=== PATIENT | male | born 1960 | race Caucasian/White ===

== ENCOUNTER → 2019-12-13 13:00 | Outpatient (CLI) | payer BC, SELFPAY ==
--- NOTE | ~2019-12-13 | XR_ITS ---
EXAMINATION: XR knee RT 3V DATE: 12/13/2019 13:28 INDICATION: Right knee pain TECHNIQUE: Weight bearing anteroposterior, sunrise, and flexed lateral views of the right knee were o btained COMPARISON: 12/05/2015 FINDINGS: No fracture. Mild genu varus with progression of now severe joint space loss in the medial compartmen t. Moderate-sized marginal osteophytes in the medial compartment with small marginal osteophytes in t he lateral and patellofemoral compartments. Likely right knee joint effusion. IMPRESSION: 1. Interval progression of tricompartmental osteoarthritis at the right knee, now severe in the media l compartment. No acute osseous abnormality. 2. Likely reactive right knee joint effusion. Reviewed, dictated and finalized at location A. IMPRESSION: 1. Interval progression of tricompartmental osteoarthritis at the right knee, n ow severe in the medial compartment. No acute osseous abnormality. 2. Likely reactive right knee joint effusion.
== END ==
PROVIDERS: PCP Family Medicine; Visit Provider Family Medicine
DX: M25.561 Pain in right knee (principal); M17.11 Unilateral primary osteoarthritis, right knee; M25.461 Effusion, right knee
CPT/HCPCS: 73562

== ENCOUNTER 2020-02-10 13:57 | Outpatient (CLI) | payer BC, SELFPAY ==
[2020-02-10 14:20] LABS: Basophils Absolute Auto 0.1 K/mm3 (0.0-0.1); Basophils Percent Auto 1.1 % (0.2-1.2); Eosinophils Absolute Auto 0.6 K/mm3 (0-0.3); Eosinophils Percent Auto 5.7 % (0-4.4); Hematocrit 39.5 % (42.0-52.0); Hemoglobin 12.6 g/dL (14.0-18.0); Immature Granulocyte Absolute 0.01 K/mm3 (0.00-0.031); Immature Granulocyte Percent A 0.1 % (0-0.5); Lymphocytes Absolute Auto 2.49 K/mm3 (0.9-3.2); Lymphocytes Percent Auto 25.9 % (18.3-44.2); Mean Corpuscular HGB Conc 31.9 g/dl (32-36); Mean Corpuscular Volume 81.6 fl (80-100); Mean Platelet Volume 9.7 fl (7.4-10.4); Monocytes Absolute Auto 0.8 K/mm3 (0.1-0.6); Monocytes Percent Auto 8.5 % (2.6-8.5); Neutrophils Absolute Auto 5.6 K/mm3 (1.3-6.7); Neutrophils Percent Auto 58.7 % (45.5-73.1); Platelet Count Result 416 k/mm3 (150-375); Red Blood Count 4.84 M/mm3 (4.6-6.20); Red Cell Distribution Width 16.2 % (11.5-14.5); White Blood Count 9.6 K/mm3 (4.5-10.0)
[2020-02-10 15:19] LABS: Erythrocyte Sedimentation Rate 18 mm/hr (0-20)
[2020-02-10 16:46] LABS: Alanine Aminotransferase 17 U/L (4-50); Albumin Level 4.3 g/dL (3.5-5.1); Alkaline Phosphatase 82 U/L (38-126); Aspartate Amino Transferase 19 U/L (17-59); Bilirubin,Total 0.2 mg/dL (0.2-1.3); Blood Urea Nitrogen 21 mg/dL (9-20); CRP < 0.5 mg/dL (<1.0); Calcium 9.4 mg/dL (8.4-10.2); Carbon Dioxide 24 mmol/L (22-30); Chloride 108 mmol/L (98-107); Estimated Glomerular Filt Rate > 60; Glucose 123 mg/dL (75-110); Potassium 4.5 mmol/L (3.4-5.0); Sodium 141 mmol/L (137-145)
[2020-02-17 15:12] LABS: CALR Exon 9 Mutation Not Detected (Not Detected); CSF3R Exon 14/17 Mutation Not Detected (Not Detected); JAK2 Exon 12 Mutation Not Detected (Not Detected); JAK2 V617F Mutation Not Detected (Not Detected); MPL Exon 10 Mutation Not Detected (Not Detected)
== END 2020-02-10 13:58 | disposition home or self-care (01) ==
LOC: ANHLAB 14:01
PROVIDERS: PCP Family Medicine; Visit Provider Internal Medicine Hematology & Oncology
DX: R79.89 Other specified abnormal findings of blood chemistry (principal); D47.3 Essential (hemorrhagic) thrombocythemia
CPT/HCPCS: 36415; 80053; 81219; 81270; 81402; 81403; 81479; 85025; 85652; 86140

== ENCOUNTER 2020-03-07 10:29 | Outpatient (CLI) | payer BC, SELFPAY ==
--- NOTE | ~2020-03-07 | US_ITS ---
EXAMINATION: US venous doppler [facility] EXAM DATE: 03/07/2020 11:23 INDICATION: History of blood clots. TECHNIQUE: Multiple grayscale, color flow and Doppler images of the left lower extremity deep venous system were obtained and reviewed. Comparison is made to prior examination from 01/01/2017. FINDINGS: The left common femoral, femoral and profunda veins demonstrate normal color flow, respirat ory variation, augmentation and compressibility. Compressibility, color flow confirmed within the le ft popliteal, posterior tibial, peroneal, and greater saphenous veins. IMPRESSION: No left lower extremity deep venous thrombosis. Reviewed, dictated and finalized at location B.
== END 2020-03-07 10:30 | disposition home or self-care (01) ==
PROVIDERS: PCP Family Medicine; Visit Provider Nurse Practitioner Family
DX: M79.89 Other specified soft tissue disorders (principal); Z86.718 Personal history of other venous thrombosis and embolism
CPT/HCPCS: 93971

== ENCOUNTER 2021-02-09 12:15 | Outpatient (CLI) | payer BC, SELFPAY ==
--- NOTE | ~2021-02-09 | XR_ITS ---
EXAMINATION: XR shoulder RT min 2V DATE: 02/09/2021 10:43 INDICATION: Right shoulder pain and limited range of motion TECHNIQUE: AP internally and externally rotated, AP oblique externally rotated and transscapular Y vi ews of the right shoulder were obtained. COMPARISON: None FINDINGS: Normal alignment. No fracture.Severe right glenohumeral osteoarthritis with essentially joint space narrowing is resulting in [id number] apposition and remodeling with mild flattening of the articula r cortex at the superomedial aspect of the right humeral head and with suggestion of mild loss of bon e stock along the inferior glenoid. Moderate-sized marginal osteophytes about the humeral head. Mild acromioclavicular osteoarthritis.. 8 x 5 mm globular region of amorphous calcific density along the p osterior aspect of the greater tuberosity consistent with rotator cuff calcific tendinitis, the teres minor or posterior infraspinatus tendons Soft tissues are. Otherwise unremarkable. Visualized portio ns of the right lung are clear. IMPRESSION: 1. Severe right glenohumeral osteoarthritis. 2. Right rotator cuff calcific tendinitis. Reviewed, dictated and finalized at location A.
== END 2021-02-09 12:16 ==
LOC: ANHIMG 02-27 12:15
PROVIDERS: PCP Family Medicine; Visit Provider Nurse Practitioner Family
DX: M19.011 Primary osteoarthritis, right shoulder (principal); M75.31 Calcific tendinitis of right shoulder
CPT/HCPCS: 73030

== ENCOUNTER → 2021-03-12 08:25 | Outpatient (CLI) | payer BC, SELFPAY ==
--- NOTE | ~2021-03-12 | MR_ITS ---
EXAMINATION: MR shoulder RT wo con DATE: 03/12/2021 09:20 INDICATION: Right shoulder pain and weakness TECHNIQUE: Magnetic resonance imaging (MRI) of the right shoulder was performed without intravenous c ontrast. Sequences included axial PD-weighted FS FSE, coronal oblique PD-weighted FS FSE, coronal obl ique T2-weighted FS FSE, sagittal PD-weighted FS FSE, and sagittal T1-weighted SE. COMPARISON: Right shoulder radiographs dated 02/09/2021 FINDINGS: Coracoacromial arch: The acromion undersurface is flat in morphology (type I). The coracoacromial ligament is normal. Mode rate acromioclavicular osteoarthritis. Rotator cuff: Severe supraspinatus and infraspinatus tendinopathy. Intrasubstance tear along the superior facet david tplate of the supraspinatus tendon and conjoined portion of the supraspinatus and infraspinatus tendo ns which measures 1.6 cm AP and involving up to two thirds of the tendon thickness. At the distal inf raspinatus tendon there is a 8 x 8 x 4 mm globular region of low signal corresponding calcification o n the prior radiographs consistent with calcific tendinitis. Mild infraspinatus tendinopathy without discrete tear. Severe tendinopathy of the cephalad third of the subscapularis tendon. There is a smal l mild intrasubstance tear at the central posterior tuberosity footplate of the tendon. No asymmetric rotator cuff muscle atrophy. Biceps tendon, glenoid labrum and glenohumeral cartilage: Long head of the biceps tendon is normal. Diffuse degenerative tearing of the glenoid labrum which se abdiel with minimal residual frayed labral tissue at the anterior to inferior labrum. There is advanced right glenohumeral osteoarthritis with extensive full thickness cartilage loss and remodeling of the articular surfaces at the glenoid and humeral head. Subarticular cystic changes seen along a flatten ed superomedial aspect of the humeral head. Fluid: Small glenohumeral joint effusion with prominent synovitis which extends into the long head biceps te ndon sheath. Small amount of fluid in the subacromial/subdeltoid bursa consistent with mild bursitis. Bones: Likely reactive marrow edema at the femoral head. No fracture or pathologic marrow replacing process . IMPRESSION: 1. Advanced right glenohumeral osteoarthritis with diffuse degenerative tearing of the glenoid labrum with likely reactive small joint effusion with prominent synovitis. 2. Severe tendinopathy of the supraspinatus, infraspinatus and cephalad subscapularis tendon with mod erate severity partial-thickness tear of the supraspinatus and conjoined portion of the supraspinatus and infraspinatus tendons and at the central posterior tuberosity footplate of the subscapularis ten don. 3. 8 x 8 x 4 mm globular region of low signal intensity calcification at the distal supraspinatus ten don consistent with calcific tendinitis. 4. Moderate acromioclavicular osteoarthritis. Reviewed, dictated and finalized at location A. IMPRESSION: 1. Advanced right glenohumeral osteoarthritis with diffuse degenerative tearing of the glenoid labrum with likely reactive small joint effusion with prominent synovitis. 2. Severe tendinopathy of the supraspinatus, infraspinatus and cephalad subscap ularis tendon with moderate severity partial-thickness tear of the supraspinatu s and conjoined portion of the supraspinatus and infraspinatus tendons and at t he central posterior tuberosity footplate of the subscapularis tendon. 3. 8 x 8 x 4 mm globular region of low signal intensity calcification at the di stal supraspinatus tendon consistent with calcific tendinitis. 4. Moderate acromioclavicular osteoarthritis.
== END ==
PROVIDERS: PCP Family Medicine; Visit Provider Nurse Practitioner Family
DX: M19.011 Primary osteoarthritis, right shoulder (principal)
CPT/HCPCS: 73221

== ENCOUNTER 2021-04-06 02:19 | Day surgery (SDC) | payer BC, SELFPAY ==
[2021-03-23 13:09] VITALS: BMI 64.7
[2021-04-06 09:55] VITALS: BP 149/79; PULSE 71; RESP 20; TEMP 35.9; O2SAT 98; BMI 67.3
[2021-04-06] MEDS: LACTATED RINGERS 1,000 ML 150 ML IV CONT (10:12)
[2021-04-06 10:14] LABS: Glucose Point of Care 117 mg/dl (65-105)
--- NOTE | 2021-04-06 10:27 | WPDANESEPPF ---
Anes - Initial Pre Proc Eval Procedure: Operation Date: 04/06/21 10:00 Proposed Procedures p Colonoscopy - Jd Ray MD Date/Time: 04/06/21 10:27 Surgeon: Jd Ray MD Pre Op Diagnosis: occult GI bleeding Patient Data Age: 60 Gender: M Height: 1.68 m Weight: 189.4 kg Last Vital Signs Temp 96.6 F L 04/06/21 09:55 Pulse 71 04/06/21 09:55 Resp 20 04/06/21 09:55 BP 149/79 H 04/06/21 09:55 Pulse Ox 98 04/06/21 09:55 Allergies Allergy/AdvReac Type Severity Reaction Status Date / Time poison ceasar extract Allergy Unknown Unknown Verified 04/06/21 09:55 Home Medications Medication Instructions Recorded Confirmed Type aspirin 81 mg tablet,delayed 81 mg PO DAILY 05/03/20 03/23/21 History release cetirizine 10 mg tablet 10 mg PO DAILY 05/03/20 03/23/21 History oxygen-air delivery systems #1 08/18/20 03/09/21 History lisinopril 10 1 tablet PO DAILY #90 tablet 01/09/21 03/23/21 Rx mg-hydrochlorothiazide 12.5 mg tablet pioglitazone 15 mg tablet 15 mg PO BID #180 tablet 01/31/21 03/23/21 Rx metformin 1,000 mg tablet 1,000 mg PO BID #180 tablet 02/16/21 03/23/21 Rx cholecalciferol (vitamin D3) 1,250 50,000 unit PO WEEKLY #8 cap 02/27/21 03/23/21 Rx mcg (50,000 unit) capsule meloxicam 15 mg tablet 15 mg PO DAILY #30 tablet 03/06/21 03/23/21 Rx atorvastatin 80 mg tablet 80 mg PO QHS #90 tablet 03/09/21 03/23/21 Rx ferrous sulfate 325 mg (65 mg 325 mg PO TID #90 tablet 03/11/21 04/06/21 Rx iron) tablet cyanocobalamin (vitamin B-12) 1,000 mcg PO DAILY 03/23/21 03/23/21 History [Vitamin B-12] tizanidine 2 mg tablet 2 mg PO QHS PRN #20 tablet 03/23/21 03/23/21 Rx Laboratory Tests 04/06/21 10:10 POC Capillary Glucose 117 mg/dl H mg/dl (65-105) Patient hx anesthesia problems: none Family hx anesthesia problems: none PMFSH Past Medical History Medical History BMI 60.0-69.9, adult Cellulitis Essential (primary) hypertension Eustachian tube dysfunction Left knee pain Lymphedema of left leg Mixed hyperlipidemia Morbid (severe) obesity due to excess calories Obesity, morbid, BMI 50 or higher Obstructive sleep apnea (adult) (pediatric) Osteoarthritis of both knees Pyloric stenosis (~1961) Right medial knee pain Right shoulder pain Sinusitis Tonsillectomy planned (~1975) Type 2 diabetes mellitus without complications Surgical History Surgical History History of left ankle joint replacement History of right ankle joint replacement (~2013) Family History Family History Grandparent Carcinoma of colon Family history of malignant neoplasm of breast Family history of coronary artery disease Diabetes mellitus Father Diabetes mellitus Mother Diabetes mellitus Hypertension Lung cancer Sibling No problems noted. 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
--- NOTE | 2021-04-06 10:33 | PM.HPGS ---
History of Present Illness History of Present Illness Consent: Risks, benefits, and alternatives have been discussed and questions answered. Patient agrees to proceed with procedure. Chief complaint: occult GI bleeding Narrative: Lucho Anderson is a 60 year old male referred for colonoscopy because of anemia. His stool was Hemoccult positive Review of Systems Review of Systems: All systems reviewed & are unremarkable except as noted in HPI and below PMFSH Past Medical History Medical History BMI 60.0-69.9, adult Cellulitis Essential (primary) hypertension Eustachian tube dysfunction Left knee pain Lymphedema of left leg Mixed hyperlipidemia Morbid (severe) obesity due to excess calories Obesity, morbid, BMI 50 or higher Obstructive sleep apnea (adult) (pediatric) Osteoarthritis of both knees Pyloric stenosis (~1961) Right medial knee pain Right shoulder pain Sinusitis Tonsillectomy planned (~1975) Type 2 diabetes mellitus without complications Surgical History Surgical History History of left ankle joint replacement History of right ankle joint replacement (~2013) Family History Family History Grandparent Carcinoma of colon Family history of malignant neoplasm of breast Family history of coronary artery disease Diabetes mellitus Father Diabetes mellitus Mother Diabetes mellitus Hypertension Lung cancer Sibling No problems noted. 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 Gender identity (if verbalized by the patient): Male Spiritual care concerns: No Meds Home Medications and Allergies Home Medications Medication Instructions Recorded Confirmed Type aspirin 81 mg tablet,delayed 81 mg PO DAILY 05/03/20 03/23/21 History release cetirizine 10 mg tablet 10 mg PO DAILY 05/03/20 03/23/21 History oxygen-air delivery systems #1 08/18/20 03/09/21 History lisinopril 10 1 tablet PO DAILY #90 tablet 01/09/21 03/23/21 Rx mg-hydrochlorothiazide 12.5 mg tablet pioglitazone 15 mg tablet 15 mg PO BID #180 tablet 01/31/21 03/23/21 Rx metformin 1,000 mg tablet 1,000 mg PO BID #180 tablet 02/16/21 03/23/21 Rx cholecalciferol (vitamin D3) 1,250 50,000 unit PO WEEKLY #8 cap 02/27/21 03/23/21 Rx mcg (50,000 unit) capsule meloxicam 15 mg tablet 15 mg PO DAILY #30 tablet 03/06/21 03/23/21 Rx atorvastatin 80 mg tablet 80 mg PO QHS #90 tablet 03/09/21 03/23/21 Rx ferrous sulfate 325 mg (65 mg 325 mg PO TID #90 tablet 03/11/21 04/06/21 Rx iron) tablet cyanocobalamin (vitamin B-12) 1,000 mcg PO DAILY 03/23/21 03/23/21 History [Vitamin B-12] tizanidine 2 mg tablet 2 mg PO QHS PRN #20 tablet 03/23/21 03/23/21 Rx Allergies Allergy/AdvReac Type Severity Reaction Status Date / Time poison ceasar extract Allergy Unknown Unknown Verified 04/06/21 09:55 Vital Signs Vital Signs - 24 hr 04/06/21 09:55 Temperature 35.9 C L Pulse Rate 71 Respiratory Rate 20 Blood Pressure 149/79 H Pulse Oximetry 98 Exam Const: Nutritional Appearance: obese Resp: Auscultation: clear to auscultation bilaterally Cardio: Rate: regular rate Rhythm: regular rhythm GI: GI Palp: No abdominal tenderness and Yes Soft to palpation Assessment and Plan Assessment and plan (1) Positive occult stool blood test: Code(s): R19.5 - Other fecal abnormalities Status: Acute Assessment and Plan: Colonoscopy with possible biopsy or polypectomy or cautery or injection of substances.
[2021-04-06 10:46] VITALS: BP 143/87; PULSE 72; RESP 20; O2SAT 98
[2021-04-06 10:56] VITALS: BP 154/87; PULSE 72; RESP 20; O2SAT 98
[2021-04-06 11:06] VITALS: BP 155/84; PULSE 70; RESP 20; O2SAT 98
== END 2021-04-06 11:33 | disposition home or self-care (01) ==
PROVIDERS: PCP Family Medicine; Visit Provider Internal Medicine Gastroenterology
PROC: 0DJD8ZZ Inspection of Lower Intestinal Tract, Via Natural or Artificial Opening Endoscopic (ICD-10-PCS; CPT 45378; principal; 2021-04-06 10:00)
DX: K92.1 Melena (principal); K64.4 Residual hemorrhoidal skin tags; K57.30 Diverticulosis of large intestine without perforation or abscess without bleeding; I10 Essential (primary) hypertension; E78.2 Mixed hyperlipidemia; G47.33 Obstructive sleep apnea (adult) (pediatric); E11.9 Type 2 diabetes mellitus without complications; E66.01 Morbid (severe) obesity due to excess calories; Z68.44 Body mass index [BMI] 60.0-69.9, adult
CPT/HCPCS: 45378; 82948; J2001; J2704; J7120

== ENCOUNTER 2021-05-10 22:17 | Observation (INO) | payer BC, SELFPAY ==
--- NOTE | ~2021-05-10 | CT_ITS ---
EXAMINATION: CT brain wo con DATE: 05/10/2021 23:49 INDICATION: Dizziness. Hypertension. TECHNIQUE: Computed tomography (CT) of the head was performed without intravenous contrast. The mA wa s adjusted according to patient size. Iterative reconstruction technique was employed. Exam dose: 60 5.33 mGy-cm total exam DLP. COMPARISON: 06/06/2017 CT brain FINDINGS: There are bilateral carotid siphon internal carotid artery calcifications. No intracranial mass lesion or hemorrhage or cerebrovascular accident. No midline shift or mass effec t effect. Normal ventricular size. No subdural or epidural hematoma. No fracture or bone destruction of the cranial vault. Included paranasal sinuses and mastoid air cells are well aerated. No fracture or bone destruction of the cranial vault. IMPRESSION: Cerebral atherosclerosis No significant intracranial abnormality Reviewed, dictated and finalized at Location A. Reviewed, dictated and finalized at location A.
--- NOTE | ~2021-05-10 | US_ITS ---
EXAMINATION: US carotid duplex BI DATE: 05/12/2021 10:14 INDICATION: Carotid stenosis TECHNIQUE: Grayscale, color Doppler, and pulsed Doppler images of the cervical carotid arteries were obtained. The degree of vessel stenosis is placed in one of the following categories: normal, <50%, 5 0-69%, >=70% but less than near-occlusion, near-occlusion, or total occlusion. Note that percent sten osis relative to normal distal artery lumen diameter is indirectly measured from velocity measurement s as described by Pineda, et al. Radiology 2003; 229:340-346. COMPARISON: None. FINDINGS: RIGHT: The right common carotid artery (CCA) peak systolic velocity (PSV) is 70 cm/s. The right internal car otid artery (ICA) PSV is 86 cm/s. The right ICA end-diastolic velocity (EDV) is 31 cm/s. The right IC A/CCA PSV ratio is 1.2. Grayscale and color Doppler images yield an estimate of <50% diameter reducti on from plaque in the ICA. The external carotid artery (ECA) PSV is 73 cm/s. There is antegrade flow in the right vertebral artery. LEFT: The left CCA PSV is 91 cm/s. The left ICA PSV is 56 cm/s. The left ICA EDV is 16 cm/s. The left ICA/C CA PSV ratio is 0.6. Grayscale and color Doppler images yield an estimate of <50% diameter reduction from plaque in the ICA. The ECA PSV is 92 cm/s. There is antegrade flow in the left vertebral artery. IMPRESSION: 1. <50% stenosis in the right internal carotid artery. 2. <50% stenosis in the left internal carotid artery. Reviewed, dictated and finalized at location A.
--- NOTE | ~2021-05-10 | XR_ITS ---
XR chest 2V DATE: 05/10/2021 23:24 INDICATION: Shortness of breath. Hypertension. TECHNIQUE: PA and lateral views COMPARISON: November 12, 2018 PA and lateral chest FINDINGS: Normal heart size. There is minimal aortic unfolding. No hilar or mediastinal enlargement. No pulmonary infiltrate or consolidation, pleural effusion or pulmonary vascular congestion or pneumo thorax is detected. Degenerative spurring of the thoracic spine. IMPRESSION: No active cardiopulmonary disease Reviewed, dictated and finalized at location A.
--- NOTE | ~2021-05-10 | MR_ITS ---
EXAMINATION: MR brain/brain stem wo con DATE: 05/12/2021 10:14 INDICATION: Posterior circulation stroke TECHNIQUE: Magnetic resonance imaging (MRI) of the brain and brainstem was performed without intraven ous contrast. Sequences included sagittal and axial T1-weighted SE, axial diffusion-weighted FS SE, a xial T2*-weighted GRE, axial T2-weighted FLAIR, and axial T2-weighted FSE. Apparent diffusion coeffic ient (ADC) maps were created. COMPARISON: Head CT dated 05/10/2021 FINDINGS: There are no areas of restricted diffusion to suggest acute infarction. No intracranial hemorrhage or abnormal intracranial mass lesion. There are no intraparenchymal signal abnormalities seen on the ot her pulse sequences. The ventricles are symmetric and normal in size. There are no abnormal extra-axi al fluid collections. Flow voids are seen in the cerebral arteries on the T2-weighted sequences consi stent with their expected patency. Small left mastoid effusion. Minimal mucoperiosteal thickening the bilateral ethmoid and maxillary sinuses. Visualized orbits and soft tissues are otherwise unremarkab le. IMPRESSION: 1. Normal brain. No acute intracranial process. Reviewed, dictated and finalized at location A.
--- NOTE | 2021-05-10 22:21 | ECG_ITS ---
Measurements Intervals [place] Rate: 91 P: 49 MI: 167 QRS: -4 QRSD: 87 T: 48 QT: 335 QTc: 413 Interpretive Statements SINUS RHYTHM VENTRICULAR PREMATURE COMPLEXES BORDERLINE ECG Electronically Signed On 05-11-2021 6:24:54 CDT by Wesley Carson D.O.
[2021-05-10 22:29] VITALS: BP 139/70; PULSE 88; RESP 19; TEMP 36.4; O2SAT 97
[2021-05-10 22:46] LABS: Basophils Absolute Auto 0.1 K/mm3 (0.0-0.1); Eosinophils Absolute Auto 0.3 K/mm3 (0-0.3); Hematocrit 36.4 % (42.0-52.0); Hemoglobin 11.7 g/dL (14.0-18.0); Immature Granulocyte Absolute 0.02 K/mm3 (0.00-0.031); Immature Granulocyte Percent A 0.2 % (0-0.5); Lymphocytes Absolute Auto 2.63 K/mm3 (0.9-3.2); Mean Corpuscular HGB Conc 32.1 g/dl (32-36); Mean Corpuscular Hemoglobin 26.8 pg (26-34); Mean Corpuscular Volume 83.5 fl (80-100); Mean Platelet Volume 9.7 fl (7.4-10.4); Monocytes Percent Auto 8.3 % (2.6-8.5); Neutrophils Absolute Auto 7.4 K/mm3 (1.3-6.7); Neutrophils Percent Auto 64.5 % (45.5-73.1); Platelet Count Result 348 k/mm3 (150-375); Red Blood Count 4.36 M/mm3 (4.6-6.20); Red Cell Distribution Width 14.5 % (11.5-14.5); White Blood Count 11.4 K/mm3 (4.5-10.0)
[2021-05-10 22:56] LABS: Anion Gap 8 mmol/L (8-16); Blood Urea Nitrogen 19 mg/dL (9-20); Calcium 9.6 mg/dL (8.4-10.2); Carbon Dioxide 25 mmol/L (22-30); Chloride 103 mmol/L (98-107); Estimated CRCL calculation 158 ml/min; Estimated Glomerular Filt Rate > 60; Glucose 118 mg/dL (65-110); Potassium 4.2 mmol/L (3.4-5.0); Sodium 136 mmol/L (137-145)
--- NOTE | 2021-05-10 23:42 | PC.NURSE ---
Pt to CT scan at this time.
[2021-05-11] VITALS (21 sets, daily range): BP systolic 126–167; BP diastolic 61–97; PULSE 61–88; RESP 16–21; TEMP 36.2–37; O2SAT 93–98; BMI 69.8
[2021-05-11 00:02] LABS: NT Pro B Type Natriuretic Pept 145 pg/mL (5-100); Troponin I < 0.012 ng/mL (0.000-0.034)
--- NOTE | 2021-05-11 00:08 | ED.DIZZY ---
HPI - Dizziness General Chief Complaint: Dizziness Stated Complaint: don't feel right, dizzy, tired, sob Time Seen by Provider: 05/10/21 23:16 Source: patient Mode of arrival: ambulatory Limitations: no limitations History of Present Illness HPI Narrative: Patient is a 60-year-old male complaining of dizziness, worse with head movement and standing, accompanied by fatigue that started today. Patient states that he is also short of breath worse with exertion. Patient denies any chest pain, abdominal pain, nausea, vomiting, diarrhea, fever or chills Related Data Home Medications Medication Instructions Recorded Confirmed aspirin 81 mg tablet,delayed 81 mg PO DAILY 05/03/20 04/25/21 release cetirizine 10 mg tablet 10 mg PO DAILY 05/03/20 04/25/21 oxygen-air delivery systems #1 08/18/20 04/25/21 cyanocobalamin (vitamin B-12) 1,000 mcg PO DAILY 03/23/21 04/25/21 [Vitamin B-12] cholecalciferol (vitamin D3) 05/11/21 ferrous sulfate [FeroSul] mg 05/11/21 05/11/21 Allergies Allergy/AdvReac Type Severity Reaction Status Date / Time poison ceasar extract Allergy Unknown Unknown Verified 05/11/21 00:16 Review of Systems Review of Systems: All systems reviewed & are unremarkable except as noted in HPI and below Constitutional: Constitutional: Denies body ache(s), Denies chills, Denies excessive sweating, Denies fatigue, Denies fever(s), Denies headache(s), Denies lethargy, Denies malaise, Denies weakness and Denies weight loss Eyes: Eyes: Denies blurry vision, Denies change in vision and Denies loss of vision ENT: Denies dizziness, Denies ear discharge, Denies headache(s), Denies lip swelling, Denies epistaxis, Denies nasal congestion, Denies neck pain, Denies throat swelling and Denies tongue swelling Cardiovascular: Cardiovascular: Denies chest pain, Denies chest pain at rest, Denies chest pain with activity, Denies diaphoresis, Denies rapid heart rate, Denies edema, Denies irregular heart rhythm, Denies lightheadedness, Denies palpitations, Denies dyspnea and Denies dyspnea on exertion Respiratory: Respiratory: Denies chest congestion, Denies cough, Denies hemoptysis, Denies dyspnea and Denies dyspnea on exertion Gastrointestinal: Gastrointestinal: Denies abdominal pain, Denies melena, Denies hematochezia, Denies diarrhea, Denies nausea, Denies vomiting and Denies hematemesis Musculoskeletal: Musculoskeletal: Denies abnormal gait, Denies deformity, Denies joint swelling, Denies limited range of motion, Denies neck pain and Denies numbness Neurologic: Denies Abnormal speech present, Denies abnormal gait, Denies confusion, Denies headache(s), Denies focal weakness, Denies loss of vision, Denies numbness, Denies Other visual disturbances, Denies Sensory deficit (Neuro) and Denies weakness Psychiatric: Psychiatric: Denies confusion, Denies depression, Denies auditory hallucinations, Denies homicidal ideation and Denies suicidal ideation Endocrine: Endocrine: Denies cold intolerance, Denies excessive sweating, Denies fatigue, Denies heat intolerance and Denies palpitations Hematologic/Lymphatic: Hematologic/Lymphatic: Denies easy bleeding and Denies easy bruising Allergic/Immunologic: Allergic/Immunologic: Denies lip swelling, Denies throat swelling and Denies tongue swelling PMFSH Past Medical History Medical History BMI 60.0-69.9, adult Cellulitis Essential (primary) hypertension Eustachian tube dysfunction Left knee pain Lymphedema of left leg Mixed hyperlipidemia Morbid (severe) obesity due to excess calories Obesity, morbid, BMI 50 or higher Obstructive sleep apnea (adult) (pediatric) Osteoarthritis of both knees Pyloric stenosis (~1961) Right medial knee pain Right shoulder pain Sinusitis Tonsillectomy planned (~1975) Type 2 diabetes mellitus without complications Surgical History Surgical History Histor
[2021-05-11] MEDS: LACTATED RINGERS 1,000 ML 999 ML IV CONT (01:00)
[2021-05-11] MEDS: ASPIRIN 81 MG CHEWABLE TABLET 324 MG PO (01:02)
[2021-05-11] MEDS: PROMETHAZINE HCL 25 MG/ML AMPUL 12.5 MG IV PUSH (01:04)
--- NOTE | 2021-05-11 03:12 | ADMGEN ---
This patient, Lucho Anderson, was admitted to IMU Room 206-01. Patient/family oriented to hospital policies and general routines including ID bracelet, bed and alarms, visiting hours, pain management, procedures, bathroom and other care routines, personal items, smoking policy, room service/diet, and visiting hours. Information on how to activate the Rapid Response Team has been discussed. Patient/Family are encouraged to report perceived risks to care and to ask questions if they do not understand what they are told or what they should do. report Summer RN [id number] arrived
[2021-05-11] MEDS: LACTATED RINGERS 1,000 ML 125 ML IV CONT ×2 (03:22→11:28)
[2021-05-11 05:40] LABS: Troponin I < 0.012 ng/mL (0.000-0.034)
--- NOTE | 2021-05-11 11:47 | PM.CNCAR ---
Assessment and Plan Additional Plan This is a 60-year-old man with: Episodes of positional dizziness in the last couple of days. This could represent a vertiginous like symptoms based on his visual symptoms as well. There are no symptoms at all that are in my opinion remotely suspicious for myocardial ischemia. There is no evidence of an acute coronary syndrome. In this setting despite his risk factors I would not recommend initiating an ischemia workup because obviously any sort of stress test will not be normal and would likely lead to the need to perform a coronary angiogram which at this time is clearly not necessary. In my opinion from a cardiac perspective he can be discharged and followed up by his primary care physician. At this point I am going to sign off of his case. Please let me know if my input is needed and thank you for asking me to see this gentleman Diego Duggan MD [facility] History of Present Illness History of Present Illness Consult date/time: 05/11/21 11:47 Reason For Visit: Angina Equivalent Narrative: This is a 60-year-old gentleman of seeing at the request of the hospitalist's the after he was admitted last evening from the emergency department. He came to the emergency room because of symptoms of dizziness that he states have begun to occur for the last couple of days when he either stands up or changes positions of his head. He states that he had mild symptoms like this but after this persisted for a couple of days and last evening while he was at a bowling alley with his she thought he looked pale and brought him to the emergency room for further evaluation. He has no history of coronary disease or direct history of cardiac pathology. He is not reporting any sense of chest pain pressure or heaviness. His electrocardiogram in the emergency room shows a sinus mechanism and is a largely unremarkable tracing. Troponin levels are normal. For some reason he was admitted to the hospital with a diagnosis of anginal equivalent and in this setting I am asked to see him in consultation. 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 The patient does not exert to a high level obviously but with his activities of daily living activities of his job he does not notice sense of chest pain pressure or heaviness. He denies any sense of palpitations orthopnea or PND. He has never had a syncopal episode. When I entered the room to see him he was in good spirits watching television and eating lunch. Review of Systems Constitutional: Constitutional: Reports no additional constitutional complaints Eyes: Eyes: Reports no additional eye complaints ENT: Reports system reviewed and no additional complaints, except as documented Cardiovascular: Cardiovascular: Reports no additional cardiovascular complaints Respiratory: Respiratory: Reports no additional respiratory complaints Gastrointestinal: Gastrointestinal: Reports no additional gastrointestinal complaints Musculoskeletal: Musculoskeletal: Reports no additional musculoskeletal complaints Integumentary/Breasts: Skin/Breast: Reports system reviewed and no additional complaints, except as docu Neurologic: Reports as per HPI Endocrine: Endocrine: Reports no additional endocrine complaints Hematologic/Lymphatic: Hematologic/Lymphatic: Reports no additional hematologic/lymphatic complaints Allergic/Immunologic: Allergic/Immunologic: Reports no additional allergic/immunologic complaints PMFSH Past Medical History Medical History BMI 60.0-69.9, adult Cellulitis Essential (primary) hypertension Eustachian tube dysfunction Left knee pain Lymphedema of left leg Mixed hyperlipidemia Morbid (severe) obesity due to excess calories Obesity, morbid, BMI 50 or higher Obstructive sleep apnea (adult) (pediatric) Osteoarthritis of both knees Pyloric stenosis (~1962) Right
[2021-05-11 12:42] LABS: Glucose Point of Care 113 mg/dl (65-105)
--- NOTE | 2021-05-11 15:24 | PM.IMHP ---
H&P: HPI History of Present Illness Date/Time: 05/11/21 15:24 60-year-old male with diabetes, MAXX, hypertension, hyperlipidemia, super morbid obesity, presents to the emergency room with chief complaint of 1 day of feeling dizzy (not spinning but reported as feeling off balance), fatigue, and shortness of breath. Patient reports 1 day of feeling unwell, he laid around his house on the couch was unable to get up move around because he felt poorly. That evening he improved enough to go to the [employer] to play, however, again felt week and suffered a fall onto his abdomen resulting in a bruise. Patient went home but reported that his symptoms persisted to he sought medical attention. Patient states he always has difficulty walking secondary to his knees and cannot tell me if he has new or worsening difficulty walking. Dizziness does not improve w rest or worsen w movement. He has not had these symptoms before. He denies any fever, chest pain, recent illness, change in bowel habits, change in urinary habits, change in neuro sensory other than dizziness. Review of systems is positive for bilateral lower extremity swelling left greater than right chronic. Patient counseled on need to lose weight. He is advised that he places his health and his life at risk if he does not begin to make different choices regarding his lifestyle and dietary habits. Chief Complaint: dizziness Review of Systems Review of Systems: All systems reviewed & are unremarkable except as noted in HPI and below PMFSH Past Medical History Medical History (Updated 05/11/21 @ 18:56 by Caitlin Mosqueda MD) BMI 60.0-69.9, adult Cellulitis Essential (primary) hypertension Eustachian tube dysfunction Left knee pain Lymphedema of left leg Mixed hyperlipidemia Morbid (severe) obesity due to excess calories Obesity, morbid, BMI 50 or higher Obstructive sleep apnea (adult) (pediatric) Osteoarthritis of both knees Pyloric stenosis (~1961) Right medial knee pain Right shoulder pain Sinusitis Tonsillectomy planned (~1975) Type 2 diabetes mellitus without complications Surgical History Surgical History (Updated 05/11/21 @ 18:56 by Caitlin Mosqueda MD) History of left ankle joint replacement History of repair of pyloric stenosis History of right ankle joint replacement (~2013) Hx of tonsillectomy Family History Family History Grandparent Carcinoma of colon Family history of malignant neoplasm of breast Family history of coronary artery disease Diabetes mellitus Father Diabetes mellitus Mother Diabetes mellitus Hypertension Lung cancer Sibling No problems noted. 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 Gender identity (if verbalized by the patient): Male Spiritual care concerns: No Meds Home Medications and Allergies Home Medications Medication Instructions Recorded Confirmed Type aspirin 81 mg tablet,delayed 81 mg PO DAILY 05/03/20 05/11/21 History release cetirizine 10 mg tablet 10 mg PO DAILY 05/03/20 05/11/21 History oxygen-air delivery systems #1 08/18/20 05/11/21 History lisinopril 10 1 tablet PO DAILY #90 tablet 01/09/21 05/11/21 Rx mg-hydrochlorothiazide 12.5 mg tablet pioglitazone 15 mg tablet 15 mg PO BID #180 tablet 01/31/21 05/11/21 Rx metformin 1,000 mg tablet 1,000 mg PO BID #180 tablet 02/16/21 05/11/21 Rx meloxicam 15 mg tablet 15 mg PO DAILY #30 tablet 03/06/21 05/11/21 Rx cyanocobalamin (vitamin B-12) 1,000 mcg PO D
[2021-05-11 17:44] LABS: Add Urine Microscopic? YES; Appearance Urine Clear (Clear); Bilirubin Urine Negative (Negative); Blood Urine Negative (Negative); Color Urine Yellow (Yellow); Glucose Urine UA Negative (Negative); Ketones Urine Negative (Negative); Leukocyte Esterase Ur Negative LEU/UL (Negative); Nitrate Urine Negative (Negative); Protein Urine Negative (Negative); Specific Grav Ur 1.019 (1.001-1.035); WBC Urine 0-3 /hpf
[2021-05-11 19:39] LABS: Hemoglobin A1C 6.6 % (<5.7)
[2021-05-11] MEDS: ATORVASTATIN 40 MG TABLET 80 MG PO (20:26)
[2021-05-11 21:02] LABS: Glucose Point of Care 122 mg/dl (65-105)
[2021-05-12] VITALS (11 sets, daily range): BP systolic 115–143; BP diastolic 58–73; PULSE 62–95; RESP 15–20; TEMP 36.1–36.9; O2SAT 92–95
[2021-05-12] MEDS: FERROUS SULFATE 324 MG TABLET PO (08:42)
[2021-05-12] MEDS: ASPIRIN 81 MG ENTERIC TABLET PO (08:42)
[2021-05-12] MEDS: CYANOCOBALAMIN 1,000 MCG TABLET 1000 MCG PO (08:42)
[2021-05-12] MEDS: hydroCHLOROthiazide 12.5 MG CAPSULE PO (08:43)
[2021-05-12] MEDS: PIOGLITAZONE HCL 15 MG TAB PO (08:43)
[2021-05-12] MEDS: metFORMIN HCL 500 MG TABLET 1000 MG PO (08:44)
[2021-05-12] MEDS: MELOXICAM 7.5 MG TABLET 15 MG PO (08:44)
[2021-05-12] MEDS: lisinopriL 10 MG TABLET PO (08:45)
[2021-05-12] MEDS: LORATADINE 10 MG TABLET PO (08:45)
[2021-05-12 10:00] LABS: Glucose Point of Care 122 mg/dl (65-105)
[2021-05-12 10:37] LABS: Basophils Absolute Auto 0.1 K/mm3 (0.0-0.1); Basophils Percent Auto 1.1 % (0.2-1.2); Eosinophils Absolute Auto 0.6 K/mm3 (0-0.3); Eosinophils Percent Auto 5.8 % (0-4.4); Hemoglobin 12.4 g/dL (14.0-18.0); Immature Granulocyte Absolute 0.03 K/mm3 (0.00-0.031); Immature Granulocyte Percent A 0.3 % (0-0.5); Lymphocytes Absolute Auto 2.28 K/mm3 (0.9-3.2); Lymphocytes Percent Auto 23.8 % (18.3-44.2); Mean Corpuscular HGB Conc 31.8 g/dl (32-36); Mean Corpuscular Hemoglobin 27.1 pg (26-34); Mean Corpuscular Volume 85.2 fl (80-100); Mean Platelet Volume 9.2 fl (7.4-10.4); Monocytes Absolute Auto 0.9 K/mm3 (0.1-0.6); Monocytes Percent Auto 9.6 % (2.6-8.5); Neutrophils Absolute Auto 5.7 K/mm3 (1.3-6.7); Neutrophils Percent Auto 59.4 % (45.5-73.1); Platelet Count Result 296 k/mm3 (150-375); Red Blood Count 4.58 M/mm3 (4.6-6.20); Red Cell Distribution Width 14.9 % (11.5-14.5); White Blood Count 9.6 K/mm3 (4.5-10.0)
[2021-05-12 10:47] LABS: Alanine Aminotransferase 20 U/L (4-50); Albumin Level 4.1 g/dL (3.5-5.1); Alkaline Phosphatase 95 U/L (38-126); Anion Gap 7 mmol/L (8-16); Aspartate Amino Transferase 22 U/L (17-59); Bilirubin,Total 0.8 mg/dL (0.2-1.3); Blood Urea Nitrogen 16 mg/dL (9-20); Calcium 9.6 mg/dL (8.4-10.2); Carbon Dioxide 26 mmol/L (22-30); Chloride 103 mmol/L (98-107); Estimated CRCL calculation 143 ml/min; Estimated Glomerular Filt Rate > 60; Glucose 142 mg/dL (65-110); Potassium 3.9 mmol/L (3.4-5.0); Sodium 136 mmol/L (137-145)
[2021-05-12] MEDS: ERGOCALCIFEROL 50,000 UNIT CAPSULE 50000 UNITS PO (10:47)
[2021-05-12 13:19] LABS: Glucose Point of Care 131 mg/dl (65-105)
--- NOTE | 2021-05-12 15:37 | PM.DS ---
DS: Admitting Diagnosis Admitting Diagnosis (1) Dizziness: Code(s): R42 - Dizziness and giddiness Status: Acute (2) Fatigue: Code(s): R53.83 - Other fatigue Status: Acute (3) BMI 60.0-69.9, adult: Code(s): Z68.44 - Body mass index [BMI] 60.0-69.9, adult Status: Acute (4) Type 2 diabetes mellitus without complications: Code(s): E11.9 - Type 2 diabetes mellitus without complications Status: Acute (5) Obstructive sleep apnea (adult) (pediatric): Code(s): G47.33 - Obstructive sleep apnea (adult) (pediatric) Status: Acute (6) Mixed hyperlipidemia: Code(s): E78.2 - Mixed hyperlipidemia Status: Acute (7) Essential (primary) hypertension: Code(s): I10 - Essential (primary) hypertension Status: Acute DS: Discharge Diagnosis Discharge Diagnosis (1) Fatigue: Code(s): R53.83 - Other fatigue Status: Acute (2) Dizziness: Code(s): R42 - Dizziness and giddiness Status: Acute (3) BMI 60.0-69.9, adult: Code(s): Z68.44 - Body mass index [BMI] 60.0-69.9, adult Status: Acute (4) Essential (primary) hypertension: Code(s): I10 - Essential (primary) hypertension Status: Acute (5) Mixed hyperlipidemia: Code(s): E78.2 - Mixed hyperlipidemia Status: Acute (6) Obstructive sleep apnea (adult) (pediatric): Code(s): G47.33 - Obstructive sleep apnea (adult) (pediatric) Status: Acute (7) Type 2 diabetes mellitus without complications: Code(s): E11.9 - Type 2 diabetes mellitus without complications Status: Acute (8) Morbid (severe) obesity due to excess calories: Code(s): E66.01 - Morbid (severe) obesity due to excess calories Status: Acute DS: Summary Hospital Course Reason for hospitalization: Dizziness and fatigue Hospital Course: 60-year-old super morbid obese gentleman presents to the emergency room with chief complaint of dizziness and fatigue. Patient was admitted for observation and central vertigo was ruled out along with infection. Subsequently, patient started to report worsening symptoms with movement. He is prescribed meclizine and discharged home in stable condition with indications of follow-up with his primary care physician for ongoing care. Status at Discharge Functional status at discharge: independent ambulation Overall status at discharge: patient is back to baseline Time Spent with Patient Time attestation: Total time spent providing and/or coordinating discharge services: Time spent: Less than 30 minutes Exam Const: General: comfortable and no acute distress HENMT: Mouth: Yes moist mucous membranes Eyes: General: appearance normal, both eyes and all related structures EOM: EOMs intact bilaterally Neck: Neck: supple and no JVD Resp: Effort & Inspection: normal respiratory effort Auscultation: clear to auscultation bilaterally, no rales, no rhonchi and no wheezes Cardio: Rate: regular rate Rhythm: regular rhythm GI: Auscultation: normal bowel sounds Skin: Rashes: no rashes noted Wounds: wound noted Other: Well-healed surgical scar over left lower extremity Neuro: Cognition (Neuro): normal cognition Speech: normal speech Motor exam (neuro): 5/5 motor strength present throughout and Normal motor muscle tone present throughout Extrem: General: normal to inspection and edema Psych: Mental Status: mental status grossly normal Affect: normal affect DS: Data Data Completed and Pending Labs on day of discharge: Labs from last 24 hours 05/12/21 05/12/21 05/12/21 13:12 10:32 10:32 WBC 9.6 RBC 4.58 L Hgb 12.4 L Hct 39.0 L MCV 85.2 MCH 27.1 MCHC 31.8 L RDW 14.9 H Plt Count 296 MPV 9.2 Immature Gran % (Auto) 0.3 Neut % (Auto) 59.4 Lymph % (Auto) 23.8 [place] % (Auto) 9.6 H Eos % (Auto) 5.8 H Baso % (Auto) 1.1 Lymph # (Auto) 2.28 [place] # (Auto) 0.9 H Eos # (Aut
--- NOTE | 2021-05-12 16:14 | PC.NURSE ---
Patient discharged to home today at 1602.
== END 2021-05-12 16:03 | disposition home or self-care (01) ==
LOC: ANHED 05-11 00:49 → ANHIMU 05-12 15:35
PROVIDERS: Emergency Medicine; Admitting Provider Internal Medicine; Emergency Provider Emergency Medicine; PCP Family Medicine; Visit Provider Hospitalist
DX: R42 Dizziness and giddiness (principal); E11.9 Type 2 diabetes mellitus without complications; G47.33 Obstructive sleep apnea (adult) (pediatric); I10 Essential (primary) hypertension; E78.5 Hyperlipidemia, unspecified; E66.01 Morbid (severe) obesity due to excess calories; Z68.44 Body mass index [BMI] 60.0-69.9, adult; R06.02 Shortness of breath; Z87.891 Personal history of nicotine dependence; R53.83 Other fatigue
CPT/HCPCS: 36415; 70450; 70551; 71046; 80048; 80053; 81001; 82948; 83036; 83880; 84484; 85025; 87040; 93005; 93880; 96361; 96374; 99285; A9270; G0378; J2550; J7120

== ENCOUNTER 2025-01-27 16:55 | Outpatient (CLI) | payer MEDICARE, SELFPAY ==
--- NOTE | ~2025-01-27 | US_ITS ---
LEFT LOWER EXTREMITY VENOUS ULTRASOUND Ordering provider: Emmett Will MD History: . R60.0 - Localized edema . Comparison: None. FINDINGS: --COMMON FEMORAL: Patent and free of thrombus. Normal compressibility, phasic flow and augmentation. --PROXIMAL SUPERFICIAL FEMORAL: Patent and free of thrombus. Normal compressibility, phasic flow and augmentation. --DISTAL SUPERFICIAL FEMORAL: Patent and free of thrombus. Normal compressibility, phasic flow and au gmentation. --POPLITEAL: Patent and free of thrombus. Normal compressibility, phasic flow and augmentation. --POSTERIOR TIBIAL: Not demonstrated. IMPRESSION: Negative left lower extremity venous US. No deep vein thrombosis. Reviewed, dictated and finalized at location A.
--- OUTSIDE RECORDS SUMMARY | 2025-01-27 17:01 | XMS_ITS | Referral Summary ---
Author Organization [facility] Address [address] [place] [address] Care Team Providers Care Grain Elevator Operator Name Role Phone Emmett Will MD Primary Care Provider [phone] Allergies No known active allergies Medications pioglitazone-metf ormin (ACTOPLUS MET) 15-850 mg per tablet 15-850 mg daily Active atorvastatin (LIPITOR) 10 mg tablet 10 mg daily Active lisinopril-hydroC HLOROthiazide (PRINZIDE,ZESTORE TIC) 10-12.5 mg per tablet 10-12.5 mg daily Active aspirin 81 mg enteric coated tablet Take 81 mg by mouth daily Active arm brace (WRIST BRACE) miscIndications:R ight hand paresthesia Right side wrist brace. Wear every night 1 each 03/24/2019 Active Active Problems Problem Noted Date Diagnosed Date Right hand paresthesia 01/27/2019 Hypertensive heart disease with heart failure Overview (12/19/2016): HYP HT DIS NOS W HT FAIL Morbid obesity with BMI of 60.0-69.9, adult 01/13 Overview (12/18/2016): MORBID OBESITY Obstructive sleep apnea syndrome 01/29/2014 Overview (12/18/2016): OBSTRUCTIVE SLEEP APNEA History of thrombosis 01/29/2014 Overview (12/19/2016): HX-NORRIS THROMBOSIS/EMBOLS Cardiomegaly 01/29/2014 Overview (12/19/2016): CARDIOMEGALY Social History Tobacco Use Types Packs/Day Years Used Date Smoking Tobacco: Former Smokeless Tobacco: Never Personal Safety Answer Date Recorded Getting School Help Needed Not on file 11/28 Sex and Gender Information Value Date Recorded Sex Assigned at Not on file Legal Sex Male 12:30 AM DIRECTOR COMMUNICATIONS Gender Identity Not on file Sexual Orientation Not on file Last Filed Vital Signs Vital Sign Reading Time Taken Comments Blood Pressure 124/75 01/27/2019 2:14 PM CDT Pulse 82 01/27/2019 2:14 PM CDT Temperature - - Respiratory Rate - - Oxygen Saturation 94% 08/28/2016 8:51 AM DIRECTOR COMMUNICATIONS Inhaled Oxygen Concentration - - Weight 181 kg (399 lb) 01/27/2019 2:14 PM CDT Height 167.6 cm (5' 6 ) 01/27/2019 2:14 PM CDT Body Mass Index 64.4 01/27/2019 2:14 PM CDT Plan of Treatment Not on file Care Teams Grain Elevator Operator Relationship Specialty Start Date End Date Emmett Will MD PCP - General Family Medicine 12/30/18
--- OUTSIDE RECORDS SUMMARY | 2025-01-27 17:01 | XMS_ITS | Clinical Summary ---
Author Organization Address [address] [place] [address] Care Team Providers Care Watch Dial Stoner Name Role Phone PhanAarti FREDO Primary Care Provider [phone] Olivier Carlson MD Unavailable [phone] Allergies No known active allergies Medications Vitamin D3 (CHOLECALCIFER OL) 125 MCG Tablet Vitamin D3 125 mcg (5,000 unit) tablet Take 1 tablet every day by oral route. Active aspirin EC 81 MG Tablet Delayed Response Take 81 mg by mouth. Active cetirizine (ZyrTEC) 10 MG Tablet Take 10 mg by mouth daily. Active lisinopril-hyd roCHLOROthiazi de (PRINZIDE, ZESTORETIC) 10-12.5 MG Tablet lisinopril 10 mg-hydrochlorothia zide 12.5 mg tablet TAKE 1 TABLET BY MOUTH ONCE DAILY Active meloxicam (MOBIC) 15 MG Tablet meloxicam 15 mg tablet TAKE 1 TABLET BY MOUTH ONCE DAILY Active ferrous sulfate 325 (65 Fe) MG Tablet FeroSul 325 mg (65 mg iron) tablet TAKE 1 TABLET BY MOUTH ONCE DAILY Active pioglitazone (ACTOS) 30 MG Tablet pioglitazone 30 mg tablet TAKE 1 TABLET BY MOUTH ONCE DAILY Active atorvastatin (LIPITOR) 80 MG Tablet atorvastatin 80 mg tablet TAKE 1 TABLET BY MOUTH EVERY DAY AT BEDTIME Active metFORMIN (GLUCOPHAGE) 1000 MG Tablet metformin 1,000 mg tablet TAKE 1 TABLET BY MOUTH TWICE DAILY 0 Active Cyanocobalamin (B-12) 1000 MCG Tablet Take by mouth. Acti ve Trulicity 3 MG/0.5ML Solution Pen-injector INJECT 3MG SUBCUTANEOUSLY ONCE WEEKLY Active Active Problems Problem Noted Date Diagnosed Date Anemia due to unknown mechanism 01/16/2023 Immunizations Immunization Administration Dates Next Due Covid-19, Mrna, Lnp-s, Pf, 30 Mcg/0.3 Ml Dose (P fizer) 08/24/2021 Family History Medical History Relation Name Comments Chronic Obstructive Pulmonary Disease Mother Relation Name Status Comments Mother Sister Alive Social History Tobacco Use Types Packs/Day Years Used Date Smoking Tobacco: Former Cigarettes Q uit: 2006 Smokeless Tobacco: Never Tobacco Cessation:Counseling Given: Not Answered Alcohol Use Standard Drinks/Week Comments Not Currently 0 (1 standard drink = 0.6 oz pur e alcohol) Sex and Gender Information Value Date Recorded Sex Assigned at Not on file Legal 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 Gender Identity Not on file Sexual Orientation Not on file Last Filed Vital Signs Vital Sign Reading Time Taken Comments Blood Pressure 142/88 05/08/2023 1:57 PM CDT Pulse 103 05/08/2023 1:57 PM CDT Temperature 36.6 C (97.8 F) 05/08/2023 1:57 PM CDT Respiratory Rate 20 05/08/2023 1:57 PM CDT Oxygen Saturation 95% 05/08/2023 1:57 PM CDT Inhaled Oxygen Concentration - - Weight 198.7 kg (438 lb) 05/08/2023 1:57 PM CDT Height 167.6 cm (5' 6 ) 05/08/2023 1:57 PM CDT Body Mass Index 70.7 05/08/2023 1:57 PM CDT Plan of Treatment Health Maintenance Due Date Last Done Comments Hepatitis C Virus (HCV) Screening 1960 Colonoscopy 2006 Colorectal Cancer Screening 2006 Cologuard 2011 Immunochemical Fecal Occult Blood 2011 Pneumococcal Immunization (5 0+ years) (1 of 1 - PCV) 2011 Zoster Immunization (2 of 3) 06/11/2013 04/16/2013 PSA Discussion 2016 Respiratory Syncytial Virus (RSV) Immunization (Adult) (1 - Risk 60-74 years 1-dose series) 2021 Influenza Immunization (#1) 05/16/202406/15, 08/04/2020 SARS-COV-2 Immunization ( season) 2024 08/24/2021, 12/24/2020, 12/01/2020 DTaP/Tdap/Td Immunization Discontinued 2021, 09/19/2011 TdaP Immunization Completed 07/01/2022, 09/19/2011 Hepatitis B Immunization Aged Out No longer eligible based on patient's age to complete this topic Meningococcal Immunization (ACWY) Aged Out No longer eligible based on patient's age to complete this topic Rotavirus Immunization Aged Out No lo nger eligible based on patient's age to complete this topic Insurance MEDICARE C [facility] MEDICAID [place] Care Teams Watch Dial Stoner Relationship Specialty Start Date End Date Aarti Phan PAC [address] [place] [address] [place] [address] PCP - General Physician [facility] 01/09/23 Olivier Carlson MD [address] [place] [phone] Consulting Physician Oncology 01/28/23
--- OUTSIDE RECORDS SUMMARY | 2025-01-27 17:01 | XMS_ITS | Continuity of Care Document ---
Author Organization [facility] Address [address] [place] [address] Phone Care Team Providers Care Business Liaison Manager Name Role Phone Interface, HMaint Import Unavailable Unavail able Medications Medication Instructions Dosage Effective Dates (start - stop) Status Comments No Drug Therapy Prescribed Advance Directives Directive Yes / No Effective Date File Name No Information Encounters Encounter Description Practice Location Reason(s) For Visit Diagnoses Date Provider Providers Copied on Encounter [facility], [address] [place] [address], [id number], [place] tel:[phone] [facility] No Information Interface HMaint Import. . Family History Family Member Type Diagnosis Age At Onset No Information Payers Payer name Insurance type Covered democrat ID Authoriza tion(s) No Information Social History Type Description Quantity Date Captured Comments Sex Male Smoking Status No Information Chief Complaint And Reason For Visit No Information History Of Present Illness Encounter Date Complaint History Of Prese nt Illness No Information Medications Administered Medication Instructions Dosage Effective Dates (start - stop) Status Comments No Drug Therapy Prescribed Instructions Date Instruction Additional Infor mation No Information Assessments Type Assessment Date No Information
--- OUTSIDE RECORDS SUMMARY | 2025-01-27 17:01 | XMS_ITS | Clinical Summary ---
Author Organization [facility] Osvaldo Stinson Address [address] [place] [address] Care Team Providers Care Deburrer Strip Name Role Phone Emmett Will MD Primary Care Provider Allergies No known active allergies Medications pioglitazone-met FORMIN (ACTOPLUS MET) 15-850 mg tablet 15-850 mg. Active metFORMIN (GLUCOPHAGE) 1,000 mg tablet 01/20/2020 Act marty lisinopril-hydro CHLOROthiazide (ZESTORETIC) 10-12.5 mg tablet 10-12.5 mg. Active atorvastatin (LIPITOR) 10 mg tablet 10 mg. Active diclofenac sodium (VOLTAREN) 75 mg Tablet, Delayed Release (E.C.) 01/12/2020 Acti ve aspirin (ECOTRIN EC) 81 mg Tablet, Delayed Release (E.C.) Take 81 mg by mouth. Active cetirizine (ZyrTEC) 10 mg tablet Take 10 mg by mouth daily. Active Active Problems Problem Noted Date Diagnosed Date Reactive thrombocytosis 02/09/2020 Family History Medical History Relation Name Comments Cancer Mother Diabetes Mother Relation Name Status Comments Father Other pt is unknown i f he is alive or not Mother Alive Sister Alive Son 1 Alive Son 2 Alive Son 3 Alive Social History Tobacco Use Types Packs/Day Years Used Date Smoking Tobacco: Former Cigarettes 1 10 0 02/08/1998 - 02/09/2008 Smokeless Tobacco: Never Tobacco Cessation:Counseling Given: No Alcohol Use Standard Drinks/Week Comments Not Currently 0 (1 standard drink = 0.6 oz pur e alcohol) Sex and Gender Information Value Date Recorded Sex Assigned at Not on file Legal Sex Male 10:04 AM CDT Gender Identity Not on file Sexual Orientation Not on file Last Filed Vital Signs Vital Sign Reading Time Taken Comments Blood Pressure 135/70 02/23/2020 11:49 AM CDT 1ST BP TAKE 165/98 HR 77 Pulse 77 02/23/2020 11:49 AM CDT Temperature 36.5 C (97.7 F) 02/23/2020 11:49 AM CDT Respiratory Rate 98 02/23/2020 11:4 9 AM CDT Oxygen Saturation 96% 02/23/2020 11: 49 AM CDT Inhaled Oxygen Concentration - - Weight 193.1 kg (425 lb 12.8 oz) 02/23/2020 11:49 AM CDT Height 167.6 cm (5' 6 ) 02/23/2020 11:4 9 AM CDT Body Mass Index 68.73 02/23/2020 11:49 AM CDT Plan of Treatment Health Maintenance Due Date Last Done Comments COLORECTAL SCREENING 2006 Colorectal Cancer Screening 2006 FIT-DNA Q 3 years 2006 FIT/FOBT Q 1 year 2006 Flex Sig/CT Colonography Q 5 years 2006 ZOSTER VACCINE (1 of 2) 2011 DTAP/TDAP/TD VACCINES (2 - Td or Tdap) 09/19/2021 INFLUENZA VACCINE (#1) 2024 RSV VACCINE (60+ or ) (1 - 1-dose 75+ series) 2036 Care Teams Deburrer Strip Relationship Specialty Start Date End Date Emmett Will MD [address] [place] [id number] PCP - General Family Practice 01/25/20
--- OUTSIDE RECORDS SUMMARY | 2025-01-27 17:01 | XMS_ITS | Clinical Summary ---
Author Organization [facility] Address [address] [place] [address] Care Team Providers Care Stock Mixer Name Role Phone Aarti Phan Primary Care Provider [phone] Allergies No known active allergies Medications atorvastatin (LIPITOR) 80 MG tablet Take 80 mg by mouth nightly at bedtime. Active ferrous sulfate, 65 mg elemental, 325 (65 FE) MG tablet Take 325 mg by mouth daily with breakfast. Active lisinopril-hydr oCHLOROthiazide (ZESTORETIC) 10-12.5 MG tablet Take 1 tablet by mouth daily. Active meloxicam (MOBIC) 15 MG tablet Take 15 mg by mouth daily. Active metFORMIN (GLUCOPHAGE) 1000 MG tablet Take 1,000 mg by mouth 2 (two) times daily with meals. Active pioglitazone (ACTOS) 30 MG tablet Take 30 mg by mouth daily. Active traMADol (ULTRAM) 50 MG tablet Take 50 mg by mouth every 8 (eight) hours as needed for Pain. Active Dulaglutide (TRULICITY) 3 MG/0.5ML Solution Pen-injector Inject 3 mg into the skin once a week. Saturdays Active aspirin 81 MG chewable tablet Chew 81 mg by mouth daily. Active cetirizine (ZYRTEC) 10 MG tablet Take 10 mg by mouth daily. Active Methylcobalamin (G45-IRIWSK OR) Acti ve vitamin D3, cholecalciferol , 5000 UNITS capsule Take 1 capsule by mouth daily. Active Fluticasone Propionate (FLONASE NA) Active Active Problems Problem Noted Date Diagnosed Date Cellulitis 05/10/2022 Social History Tobacco Use Types Packs/Day Years Used Date Smoking Tobacco: Former Smokeless Tobacco: Never Alcohol Use Standard Drinks/Week Comments Never 0 (1 standard drink = 0.6 oz pur e alcohol) Sex and Gender Information Value Date Recorded Sex Assigned at Not on file Legal Sex Male 4:39 PM CDT Gender Identity Not on file Sexual Orientation Not on file Last Filed Vital Signs Vital Sign Reading Time Taken Comments Blood Pressure 119/61 05/15/2022 6:36 AM CDT Pulse 89 05/15/2022 6:36 AM CDT Temperature 36.4 C (97.5 F) 05/15/2022 6:36 AM CDT Respiratory Rate 18 05/15/2022 6:36 AM CDT Oxygen Saturation 93% 05/15/2022 6:36 AM CDT Inhaled Oxygen Concentration - - Weight 200.5 kg (442 lb 0.4 oz) 05/14/2022 5:00 AM CDT Height 167.6 cm (5' 6 ) 05/10/2022 7:31 PM CDT Body Mass Index 71.34 05/10/2022 7:31 PM CDT Plan of Treatment Health Maintenance Due Date Last Done Comments Colorectal Cancer Screening Colonoscopy (10 Years) 1961 Annual Physical 1964 Hepatitis C 1979 Pneumococcal Vaccine: 50+ Years (1 of 1 - PCV) 2011 Zoster Vaccines (2 of 3) 06/11/2013 04/16/2013 DTaP, Tdap and Td Vaccines ( 2 - Td or Tdap) 09/19/2021 09/19/2011 RSV Immunization or 60+ Years (1 - Risk 60-74 years 1-dose series) 2021 COVID-19 Vaccine (4 - 2023-2 5 season) 2024 08/24/2021, 12/24/2020, 12/01/2020 Meningococcal B Vaccine Aged Out No l onger eligible based on patient's age to complete this topic Meningococcal Vaccine Aged Out No carie kerrie eligible based on patient's age to complete this topic RSV Immunizations Under 20 Months Aged Out No longer eligible b ased on patient's age to complete this topic Insurance [facility] C/[employer] SERVICES YANNICK MAO [id number] Advance Directives * Full Code (Latest Code Status on File) Date Activated Date Inactivated Comments 05/10/2022 6:46 PM 05/15/2022 6:04 PM Care Teams Stock Mixer Relationship Specialty Start Date End Date Aarti Phan PA [address] [place] [address] PCP - General PHYSICIAN JALOUSIE INSTALLER 05/10/22
--- OUTSIDE RECORDS SUMMARY | 2025-01-27 17:01 | XMS_ITS | Clinical Summary ---
Author Organization [facility] Address [address] [place] [address] Care Team Providers Care Team Facilitator Name Role Phone Emmett Will MD Primary Care Provider [phone] Allergies No known active allergies Medications pioglitazone-metf [...] HX-NORRIS THROMBOSIS/EMBOLS Cardiomegaly 01/29/2014 Overview (12/19/2016): CARDIOMEGALY Medical History Medical History Date Comments Hypertension Hyperlipemia Diabetes mellitus (HCC) Family History Medical History Relation Name Comments Cancer Mother Diabetes Mother Hypertension Mother Relation Name Status Comments Mother Social History Tobacco Use Types Packs/Day Years Used Date Smoking Tobacco: Former Smokeless Tobacco: Never Personal Safety Answer Date Recorded Getting School Help Needed Not on file 11/28 Sex and Gender Information Value Date Recorded Sex Assigned at Not on file Legal Sex Male 12:30 AM PAYMENT MANAGER Gender Identity Not on file Sexual Orientation Not on file Obstetrics History Last Filed Vital Signs Vital Sign Reading Time Taken Comments Blood Pressure 124/75 01/27/2019 2:14 PM CDT Pulse 82 01/27/2019 2:14 PM CDT Temperature - - Respiratory Rate - - Oxygen Saturation 94% 08/28/2016 8:51 AM PAYMENT MANAGER Inhaled Oxygen Concentration - - Weight 181 kg (399 lb) 01/27/2019 2:14 PM CDT Height 167.6 cm (5' 6 ) 01/27/2019 2:14 PM CDT Body Mass Index 64.4 01/27/2019 2:14 PM CDT Plan of Treatment Not on file Care Teams Team Facilitator Relationship Specialty Start Date End Date Emmett Will MD PCP - General Family Medicine 12/30/18
--- OUTSIDE RECORDS SUMMARY | 2025-01-27 17:01 | XMS_ITS | Clinical Summary ---
Author Organization [facility] Address [address] [place] [address] Care Team Providers Care Other Wood Processing Machine Operator Name Role Phone Unavailable Primary Care Provider Unavailabl e Source Comments [facility],non-owned Affiliates and Associated Physician Practices is amultiple site organization consisting of ambulatory clinics and hospital sitesin [place], [place], [place] and [place]. This disclosure is being madepursuant to the Care Everywhere program and may not contain all information available regarding this patient. Last updated 18.[employer] [facility] Allergies No known active allergies Medications * Be aware that medications may not be up to date on this document. Alwaysverify current medications with the patient. naproxen sodium (ALEVE) 220 MG tablet Take 220 mg by mouth 2 times daily. Active lisinopril (PRINIVIL; ZESTRIL) 10 MG tablet Take 10 mg by mouth once daily. Active metFORMIN (GLUCOPHAGE) 500 MG tablet Take 500 mg by mouth once daily. Active Immunizations Immunization Administration Dates Next Due TDAP (7yrs+) 09/19/2011 Family History Medical History Relation Name Comments Stroke Father Diabetes Mother Relation Name Status Comments Father Alive Mother Alive Social History Tobacco Use Types Packs/Day Years Used Date Smoking Tobacco: Former Cigarettes Q uit: 05/24/2007 Smokeless Tobacco: Never Alcohol Use Standard Drinks/Week Comments No 0 (1 standard drink = 0.6 oz pur e alcohol) Sex and Gender Information Value Date Recorded Sex Assigned at Not on file Legal Sex Male 12:57 PM RESEARCH PSYCHOLOGIST Gender Identity Not on file Sexual Orientation Not on file Last Filed Vital Signs Vital Sign Reading Time Taken Comments Blood Pressure 127/58 09/19/2011 9:37 AM RESEARCH PSYCHOLOGIST Pulse 66 09/19/2011 9:37 AM RESEARCH PSYCHOLOGIST Temperature 36.7 C (98.1 F) 09/19/2011 7:51 AM RESEARCH PSYCHOLOGIST Respiratory Rate 16 09/19/2011 9:37 AM RESEARCH PSYCHOLOGIST Oxygen Saturation 97% 09/19/2011 9:37 AM RESEARCH PSYCHOLOGIST Inhaled Oxygen Concentration - - Weight 181.4 kg (400 lb) 09/19/2011 7:51 AM RESEARCH PSYCHOLOGIST Height 170.2 cm (5' 7 ) 09/19/2011 7:51 AM RESEARCH PSYCHOLOGIST Body Mass Index 62.65 09/19/2011 7:51 AM RESEARCH PSYCHOLOGIST Plan of Treatment Health Maintenance Due Date Last Done Comments COLOGUARD (AGES 45-75) - COL ON CA SCREENING 1961 COLON MONITORING 1961 COLONOSCOPY - COLON CA SCREENING 1961 CT COLONOGRAPHY - COLON CA SCREENING 1961 Colorectal Cancer Screening 1961 FIT - COLON CA SCREENING 1961 FLEX SIG - COLON CA SCREENING 1961 LIPID TESTING 1961 HIV SCREENING 1976 HEPATITIS C SCREENING 10/29/1979 PNEUMOCOCCAL VACCINE 50+ (1 of 1 - PCV) 2011 ZOSTER VACCINE (1 of 2) 2011 DTAP/TDAP/TD VACCINES (2 - T d or Tdap) 09/19/2021 09/19/2011 Respiratory Syncytial Virus (RSV) Vaccine Pt: or over 60 yrs (1 - Risk 60-74 years 1-dose series) 2021 COVID-19 VACCINE (1 - 2023-2 5 season) 2024 DEPRESSION SCREENING 09/15/2024 INFLUENZA VACCINE (Season Ended) 2025 HEPATITIS B VACCINE Aged Out No longe r eligible based on patient's age to complete this topic HIB VACCINE Aged Out No longer eligi ble based on patient's age to complete this topic HPV VACCINE Aged Out No longer eligi ble based on patient's age to complete this topic MENINGOCOCCAL (Group B) VACC INE SHARED DECISION-MAKING Aged Out No longer eligibl e based on patient's age to complete this topic MENINGOCOCCAL GROUPS A/C/Y/W VACCINE Aged Out No longer eligible b ased on patient's age to complete this topic
== END 2025-01-27 16:56 | disposition home or self-care (01) ==
PROVIDERS: PCP Family Medicine; Visit Provider Family Medicine
DX: R60.0 Localized edema (principal)
CPT/HCPCS: 93971

== ENCOUNTER 2025-05-05 08:09 | Outpatient (CLI) | payer MEDICARE, SELFPAY ==
--- NOTE | ~2025-05-05 | XR_ITS ---
EXAM/ PROCEDURE: XR lumbar spine 2-3V - 05/05/2025 8:15 CDT HISTORY: 64 years old Male with M54.50 - Low back pain, unspecified COMPARISON: None available TECHNIQUE: Three view(s) FINDINGS/ IMPRESSION: Limited evaluation due to underexposure. There are no large displaced fractures or dislocations.Multilevel degenerative changes are seen. Grade 1 anterolisthesis of L4 on L5, likely degenerative. Reviewed, dictated and finalized at location A.
== END 2025-05-05 08:10 | disposition home or self-care (01) ==
LOC: MICIMG 08:10
PROVIDERS: PCP Family Medicine; Visit Provider Nurse Practitioner Adult Health
DX: M54.50 Low back pain, unspecified (principal)
CPT/HCPCS: 72100

== ENCOUNTER 2025-08-09 12:31 | Outpatient (CLI) | payer MEDICARE, SELFPAY ==
--- NOTE | 2025-08-09 13:00 | NEURO_ITS ---
Impression: # Known diabetic with complaints of neuropathic pain. ? # Severe edema, left more than right. ? # Only right lower extremity tested. ? # Severe neuropathy with neurogenic changes on Needle/ EMG exam. Nerve Conduction Studies ?Stim Site NR Peak (ms) P-T Amp (?V) Site1 Site2 Delta-P (ms) Dist (cm) Abhilash (m/s) Right Sup Fibular Anti Sensory (Ant Lat Mall)??? NO RESPONSE 14 cm NR 14 cm Ant Lat Mall 16.0 Right Sural Anti Sensory (Lat Mall)??? NO RESPONSE Calf NR Calf Lat Mall 16.0 ?Stim Site NR Onset (ms) O-P Amp (mV) Site1 Site2 Delta-0 (ms) Dist (cm) Abhilash (m/s) Right Peroneal Motor (Vastus Med) Ankle ? 4.5 0.3 Popit Ankle 12.8 37.0 29 Popit ? 17.3 0.1 Right Tibial Motor (Abd Florez Brev) Ankle NR Knee Ankle 36.0 Knee ? 13.8 0.0 F Wave Studies ?NR F-Lat (ms) L-R F-Lat (ms) Right Peroneal (Mrkrs) (EDB)??? DISPERSED RESPONSE NR Right Tibial (Mrkrs) (Abd Hallucis)??? NO RESPONSE NR Electromyography ?Side Muscle Nerve Root Ins Act Fibs Amp Dur Recrt Comment Right AntTibialis Dp Br Fibular L4-5 Nml Nml Decr >12ms +3 Right Gastroc Tibial S1-2 Nml Nml Decr >12ms +3 Right Fibularis Long Sup Br Fibular L5-S1 Nml Nml Decr >12ms +2 Right Flex Dig Long Tibial L5-S2 Nml Nml Decr >12ms +2 Right Ext Dig Brev Dp Br Fibular L5, S1 Nml Nml Decr >12ms +3 Right QuadratusFem QuadFemoris L4-5, S1 Nml Nml Nml Nml Nml
--- OUTSIDE RECORDS SUMMARY | 2025-08-09 13:59 | XMS_ITS | Clinical Summary ---
Author Organization [facility] Address [address] [place] [address] Care Team Providers Care Technology Teacher Name Role Phone Emmett Will MD Primary Care Provider [phone] Allergies No known active allergies Medications pioglitazone-met [...] 11:49 AM CDT Height 167.6 cm (5' 6) 02/23/2020 11:4 9 AM CDT Body Mass [...] Td or Tdap) 09/19/2021 INFLUENZA VACCINE (#1) 2025 RSV VACCINE (60+ or ) (1 - 1-dose 75+ series) 2036 Care Teams Technology Teacher Relationship Specialty Start Date End Date Emmett Will MD [address] [place] [address] PCP - General Family Practice 01/25/20
--- OUTSIDE RECORDS SUMMARY | 2025-08-09 13:59 | XMS_ITS | Clinical Summary ---
Author Organization 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 01/16/2023 Immunizations Immunization Administration Dates Next Due Covid-19, Mrna, Lnp-s, Pf, 30 Mcg/0.3 Ml Dose (P fizer) 08/24/2021 Family History Medical History Relation Name Comments Chronic Obstructive Pulmonary Disease Mother Relation Name Status Comments Mother Sister Alive Social History Tobacco Use Types Packs/Day Years Used Date Smoking Tobacco: Former Cigarettes 0 Q uit: 2006 Smokeless Tobacco: Never Tobacco Cessation:Counseling Given: Not Answered Alcohol Use Standard Drinks/Week Comments Not Currently 0 (1 standard drink = 0.6 oz pur e alcohol) Sex and Gender Information Value Date Recorded Sex Assigned at Not on file Legal Sex Male 2:51 AM ORE SMELTER Gender Identity Not on file Sexual Orientation [...] 1:57 PM CDT Height 167.6 cm (5' 6) 05/08/2023 1:57 PM CDT Body Mass Index 70.7 05/08/2023 1:57 PM CDT Plan of Treatment Health Maintenance Due Date Last Done Comments Hepatitis C Virus (HCV) Screening 1961 Cologuard 2006 Colonoscopy 2006 Colorectal Cancer Screening 2006 Immunochemical Fecal Occult Blood 2006 Pneumococcal Immunization (5 0+ years) (1 of 1 - PCV) 2011 Zoster Immunization (2 of 3) 06/11/2013 04/16/2013 PSA Discussion 2016 Medicare Initial AWV [id number] 10/16/2024 Influenza Immunization (#1) 05/16/202506/15, 08/04/2020 SARS-COV-2 Immunization (4 - 5-26 season) 2025 08/24/2021, 12/24/2020, 12/01/2020 Respiratory Syncytial Virus (RSV) Immunization (Adult) (1 - 1-dose 75+ series) 2036 DTaP/Tdap/Td Immunization Discontinued 2021, 09/19/2011 TdaP Immunization Completed 07/01/2022, 09/19/2011 Hepatitis B Immunization Aged Out No longer eligible based on patient's age to complete this topic Human Papillomavirus (HPV) Immunization Aged Out No longer eligible based on patient's age to complete this topic Meningococcal Immunization (ACWY) Aged Out No longer eligible based on patient's age to complete this topic Rotavirus Immunization Aged Out No lo nger eligible based on patient's age to complete this topic Insurance MEDICARE C [employer] [place] Care Teams Police Reserves Commander Relationship Specialty Start Date End Date Aarti Phan PAC [address] [place] [address] PCP - General Physician Manager Automotive 01/09/23 Olivier Carlson MD [address] [place] [phone] Consulting Physician Oncology 01/28/23
--- OUTSIDE RECORDS SUMMARY | 2025-08-09 13:59 | XMS_ITS | Clinical Summary ---
Author Organization [facility] Address [address] [place] [address] Care Team Providers Care Cargo Mate Name Role Phone Aarti Phan Primary Care Provider [phone] Allergies No known active allergies Medications atorvastatin [...] 10 mg by mouth daily. Active Methylcobalamin ([id number] OR) Acti ve vitamin D3, cholecalciferol , [...] 5:00 AM CDT Height 167.6 cm (5' 6) 05/10/2022 7:31 PM CDT Body Mass Index [...] 2 - Td or Tdap) 09/19/2021 09/19/2011 COVID-19 Vaccine (4 - 2024-2 6 season) 2025 08/24/2021, 12/24/2020, 12/01/2020 Influenza Adult (#1) 2025 08/04/2020 RSV Immunization or 60+ Years (1 - 1-dose 75+ series) 2036 Hepatitis A Vaccines Aged Out No long er eligible based on patient's age to complete this topic Meningococcal B Vaccine Aged Out No l onger eligible based on patient's age to complete this topic Meningococcal Vaccine Aged Out No carie kerrie eligible based on patient's age to complete this topic RSV Immunizations Under 20 Months Aged Out No longer eligible b ased on patient's age to complete this topic Insurance [facility] MEDICAID Advance Directives * Full Code (Latest Code Status on File) Date Activated Date Inactivated Comments 05/10/2022 6:46 PM 05/15/2022 6:04 PM Care Teams Cargo Mate Relationship Specialty Start Date End Date Aarti Phan PA [address] [place] [phone] PCP - General PHYSICIAN JAVA WEB SERVICES DEVELOPER 05/10/22
--- OUTSIDE RECORDS SUMMARY | 2025-08-09 13:59 | XMS_ITS | Clinical Summary ---
[facility] Organization [facility] Address [address] [place] [address] Care Team Providers Care Hall Manager Name Role Phone Emmett Will MD Primary Care Provider [phone] Allergies No known active allergies Medications pioglitazone-metf [...] History Date Comments Hypertension Hyperlipemia Diabetes mellitus Family History Medical History Relation Name Comments [...] on file Legal Sex Male 12:30 AM PROPERTY SITE MANAGER Gender Identity Not on file Sexual Orientation Not on file Last Filed Vital Signs Vital Sign Reading Time Taken Comments Blood Pressure 124/75 01/27/2019 2:14 PM CDT Pulse 82 01/27/2019 2:14 PM CDT Temperature - - Respiratory Rate - - Oxygen Saturation 94% 08/28/2016 8:51 AM PROPERTY SITE MANAGER Inhaled Oxygen Concentration - - Weight 181 kg (399 lb) 01/27/2019 2:14 PM CDT Height 167.6 cm (5' 6) 01/27/2019 2:14 PM CDT Body Mass Index 64.4 01/27/2019 2:14 PM CDT Plan of Treatment Not on file Care Teams Hall Manager Relationship Specialty Start Date End Date Emmett Will MD PCP - General Family Medicine 12/30/18
--- OUTSIDE RECORDS SUMMARY | 2025-08-09 13:59 | XMS_ITS | Clinical Summary ---
Author Organization [facility] [employer] Address [address] [place] [address] Care Team Providers Care Runner Out Name Role Phone Unavailable Primary Care Provider Unavailabl e Source Comments [facility] [employer],non-owned Affiliates and Associated Physician Practices is amultiple site organization consisting of ambulatory clinics and hospital sitesin [place], [place], [place] and [place]. This disclosure is being madepursuant to the Care Everywhere program and may not contain all information available regarding this patient. Last updated 18.[employer] Allergies No known active allergies Medications * [...] Smoking Tobacco: Former Cigarettes 0 Q uit: 05/24/2007 Smokeless Tobacco: Never Alcohol Use Standard Drinks/Week Comments No 0 (1 standard drink = 0.6 oz pur e alcohol) Sex and Gender Information Value Date Recorded Sex Assigned at Not on file Legal Sex Male 12:57 PM GRADALL OPERATOR Gender Identity Not on file Sexual Orientation Not on file Last Filed Vital Signs Vital Sign Reading Time Taken Comments Blood Pressure 127/58 09/19/2011 9:37 AM GRADALL OPERATOR Pulse 66 09/19/2011 9:37 AM GRADALL OPERATOR Temperature 36.7 C (98.1 F) 09/19/2011 7:51 AM GRADALL OPERATOR Respiratory Rate 16 09/19/2011 9:37 AM GRADALL OPERATOR Oxygen Saturation 97% 09/19/2011 9:37 AM GRADALL OPERATOR Inhaled Oxygen Concentration - - Weight 181.4 kg (400 lb) 09/19/2011 7:51 AM GRADALL OPERATOR Height 170.2 cm (5' 7) 09/19/2011 7:51 AM GRADALL OPERATOR Body Mass Index 62.65 09/19/2011 7:51 AM GRADALL OPERATOR Plan of Treatment Health Maintenance Due Date [...] - T d or Tdap) 09/19/2021 09/19/2011 DEPRESSION SCREENING 09/15/2024 COVID-19 VACCINE (1 - 2024-2 6 season) 2025 INFLUENZA VACCINE (#1) 2025 Respiratory Syncytial Virus (RSV) Vaccine Pt: or over 60 yrs (1 - 1-dose 75+ series) 2036 HEPATITIS B VACCINE Aged Out No longe [...]
== END 2025-08-09 12:32 | disposition home or self-care (01) ==
PROVIDERS: PCP Family Medicine; Visit Provider Family Medicine
DX: M79.2 Neuralgia and neuritis, unspecified (principal); E11.9 Type 2 diabetes mellitus without complications
CPT/HCPCS: 95886; 95908